=== PATIENT | male | born 1980 | race Caucasian/White ===

== ENCOUNTER 2023-09-17 22:18 | Emergency (ER) | payer BC, SELFPAY ==
[2023-09-17 22:26] VITALS: BP 128/94; PULSE 66; RESP 16; TEMP 36.6; O2SAT 92; BMI 30.7
--- NOTE | 2023-09-17 22:39 | CTR_ITS ---
PROCEDURE INFORMATION: Exam: CT Head Without Contrast Exam date and time: 09/17/2023 10:56 PM Age: 42 years old Clinical indication: Pain; Headache; Additional info: Severe headache TECHNIQUE: Imaging protocol: Computed tomography of the head without contrast. Radiation optimization: All CT scans at this facility use at least one of these dose optimization techniques: automated exposure control; mA and/or kV adjustment per patient size (includes targeted exams where dose is matched to clinical indication); or iterative reconstruction. COMPARISON: No relevant prior studies available. RADIATION DOSE METRICS: Total DLP (mGy-cm): 1208.58 FINDINGS: Brain: Normal. No hemorrhage. Unremarkable white matter. No mass effect. Cerebral ventricles: No ventriculomegaly. Paranasal sinuses: Visualized sinuses are unremarkable. No fluid levels. Mastoid air cells: Visualized mastoid air cells are well aerated. Bones: Unremarkable. No acute fracture. Soft tissues: Unremarkable. CT/CT head wo con* [id number] IMPRESSION: No acute intracranial abnormality.
--- NOTE | 2023-09-17 22:45 | ED_ITS ---
HPI - Headache 2 General: Chief Complaint: Headache Stated Complaint: Exploding Headache Time Seen by Provider: 09/17/23 22:39 History of Present Illness: 42-year-old male patient comes in today with complaints of severe headache that seem like it exploded inside his head. Patient reports it happened and actually took him to his knees. Patient reports since then his headache has pretty much resolved and is only 2 out of 10 at this time. Patient denies any chronic medical problems. Patient does take routine supplements and pre and probiotics. Review of Systems 2 General: Reports: 10 or more systems reviewed and unremarkable except in HPI and below Neuro: Reports: headache(s) Physical Exam 2 Const: COMMON NORMALS: alert HENMT: COMMON NORMALS: normocephalic HEAD & SCALP: normocephalic Neck/C-Spine: COMMON NORMALS: full ROM Resp: COMMON NORMALS: normal respiratory effort and clear to auscultation bilaterally AUSCULTATION: clear to auscultation bilaterally Cardio: COMMON NORMALS: regular rate and regular rhythm RATE: regular rate RHYTHM: regular rhythm GI: COMMON NORMALS: Soft to palpation PALPATION: Yes Soft to palpation Back/Pelvis: COMMON NORMALS: thoracic and lumbar spine normal to inspection Extremity: COMMON NORMALS: normal to inspection and full ROM Neuro: SENSORIUM/ORIENTATION: Yes alert Skin: COMMON NORMALS: turgor normal GENERAL SKIN EXAM: turgor normal Course 2 Vital Signs: Vital signs: Vital Signs Temperature 97.8 F 09/17/23 22:26 Pulse Rate 66 09/17/23 22:26 Respiratory Rate 16 09/17/23 22:26 Blood Pressure 128/94 09/17/23 22:26 Pulse Oximetry 92 09/17/23 22:26 Oxygen Delivery Me thod Room Air 09/17/23 22:26 MDM - Headache Medical Decision Making 42-year-old male patient comes in today with complaints of thunderclap headache. Patient reports the pain has resolved and has actually improved pretty much gone away since arriving to the ER. Incident occurred this evening. Patient appears normal. Patient moves all extremities well. No focal neural deficits. Vital signs are normal. Differential diagnosis includes not limited to subarachnoid hemorrhage, cluster headache, migraine headache, tension headache. CT scan noted no acute abnormalities of the brain. CBC CMP was unremarkable. Reviewed exam with patient recommended treatment with management with [id number] medications. Recommended following up with primary care for further instructions. Also suggested follow-up with neurology for recurrent and persistent headaches. Lab Data 09/17/23 22:47 09/17/23 22:[address] 09/17/23 22:39 IMPRESSION: No acute intracranial abnormality. Laboratory Results WBC 6.45 10^3/uL (3.29-11.43) 09/17/23 22:47 RBC 5.09 10^6/uL (3.85-5.65) 09/17/23 22:47 Hgb 14.80 g/dL (11.27-16.99) 09/17/23 22:47 Hct 43.1 % (37-53) 09/17/23 22:47 MCV 84.7 fl (82-101) 09/17/23 22:47 MCH 29.1 pg (27-33) 09/17/23 22:47 MCHC 34.3 g/dL (30-55) 09/17/23 22:47 RDW 12.3 % (12.1-15.1) 09/17/23 22:47 Plt Count 263 10^3/cmm (157-399) 09/17/23 22:47 MPV 10.0 fL (7.4-10.4) 09/17/23 22:47 Neut % (Auto) 41.2 % 09/17/23 22:47 Lymph % (Auto) 43.7 % 09/17/23 22:47 [place] % (Auto) 11.0 % 09/17/23 22:47 Eos % (Auto) 3.3 % 09/17/23 22:47 Baso % (Auto) 0.5 % 09/17/23 22:47 Neut # (Auto) 2.66 10^3/uL (1.8-7.7) 09/17/23 22:47 Lymph # (Auto) 2.8 10^3/uL (0.8-4.8) 09/17/23 22:47 [place] # (Auto) 0.7 10^3/uL (0.2-0.9) 09/17/23 22:47 Eos # (Auto) 0.2 10^3/uL (0.0-0.8) 09/17/23 22:47 Baso # (Auto) 0.0 10^3/uL (0.0-0.1) 09/17/23 22:47 Nucleated RBC % (auto) 0 % 09/17/23 22:47 Nucleated RBCs # 0.0 /100WBC 09/17/23 22:47 Sodium 141 mmol/L (136-145) 09/17/23 22:47 Potassium 4.1 mmol/L (3.5-5.1) 09/17/23 22:47 Chloride 105 mmol/L (98-107) 09/17/23 22:47 Carbon Dioxide 24 mmol/L (22-29) 09/17/23 22:47 Anion Gap 16.1 (5-19) 09/17/23 22:47 BUN 16 mg/dL (6-20) 09/17/23 22:47 Creatinine 1.0 mg/dL (0.7-1.2) 09/17/23 22:47 GFR Calculation 82.8 mL/min (90-130) L 09/17/23 22:47 Glucose 125 mg/dL (65-115) H 09/17/23 22:47 Calculated Osmolality 295 mOsm/kg (285-295) 09/17/23 22:47 Calcium 9.3 mg/dL (8.5-10.5) 09/17/23 22:47 Total Bilirubin 0.3 mg/dL (0.15-1.2) 09/17/23 22:47 AST 19 U/L (0-40) 09/17/23 22:47 ALT 29 U/L (0-41) 09/17/23 22:47 Alkaline Phosphatase 84 U/L (40-130) 09/17/23 22:47 Total Protein 7.8 g/dL (6.6-8.7) 09/17/23 22:47 Albumin 4.5 g/dL (3.5-5.2) 09/17/23 22:47 Globulin 3.3 g/dL (1.3-4.6) 09/17/23 22:47 All radiology interpretation(s) finalized by discharge Discharge Plan Discharge Patient Disposition: Home Clinical Impression: Headache Qualifiers: Headache type: unspecified Headache chronicity pattern: acute headache I ntractability: intractable Qualified Code(s): R51.9 - Headache, unspecified Condition: Stable Discharge Orders: Discharge ED (Routine); Ordered 09/17/23 Ordered By: Chaka Guajardo Referrals: Shayy Moreno APN [Primary Care Provider] - Discharge Diet: Usual diet Discharge Activity: Increase activity as tolerated Patient Instructions: Acute Headache (ED) Activity Restrictions/Additional Instructions: Follow-up with primary care for further instructions. Return to ED for new concerns. Thank you for choosing [facility] for your healthcare needs today. Please realize that you were seen in the emergency department and that we are providing you with an emergency medical screening exam and this may not be a complete and all exclusive of all testing and/or medical workup we may need to determine your element or severity of your illness. It is very important that you follow-up as instructed with your primary care provider or specialist for the additional evaluation and to discuss your medical treatment plan. You may return to the emergency department should you have concerns or if your condition changes or worsens in any way. Coding Level of Care Code ED Linotype Operator for Franco Morales
[2023-09-17 22:53] LABS: Basophils % 0.5 %; Eosinophils # 0.2 10^3/uL (0.0-0.8); Eosinophils % 3.3 %; Hematocrit 43.1 % (37-53); Lymphocytes # 2.8 10^3/uL (0.8-4.8); Lymphocytes % 43.7 %; Mean Corpuscular HGB Conc 34.3 g/dL (30-55); Mean Corpuscular Hemoglobin 29.1 pg (27-33); Mean Corpuscular Volume 84.7 fl (82-101); Monocytes # 0.7 10^3/uL (0.2-0.9); Neutrophils # 2.66 10^3/uL (1.8-7.7); Neutrophils % 41.2 %; Nucleated Red Blood Cells % 0 %; Platelet Count 263 10^3/cmm (157-399); Red Blood Count 5.09 10^6/uL (3.85-5.65); Red Cell Distribution Width 12.3 % (12.1-15.1); White Blood Count 6.45 10^3/uL (3.29-11.43)
[2023-09-17 23:10] LABS: Alanine Aminotransferase 29 U/L (0-41); Albumin Level 4.5 g/dL (3.5-5.2); Alkaline Phosphatase 84 U/L (40-130); Anion Gap 16.1 (5-19); Aspartate Amino Transferase 19 U/L (0-40); Blood Urea Nitrogen 16 mg/dL (6-20); Calcium 9.3 mg/dL (8.5-10.5); Carbon Dioxide 24 mmol/L (22-29); Chloride 105 mmol/L (98-107); Creatinine Clr Calc Pharmacy 118.1889; Globulin 3.3 g/dL (1.3-4.6); Glomerular Filtration Rate 82.8 mL/min (90-130); Glucose 125 mg/dL (65-115); Osmolality Calculated 295 mOsm/kg (285-295); Potassium 4.1 mmol/L (3.5-5.1); Sodium 141 mmol/L (136-145); Total Bilirubin 0.3 mg/dL (0.15-1.2); Total Protein 7.8 g/dL (6.6-8.7)
== END 2023-09-17 23:35 | disposition home or self-care (01) ==
PROVIDERS: Emergency Provider Nurse Practitioner Family; PCP Nurse Practitioner Family
DX: R51.9 Headache, unspecified (principal)
CPT/HCPCS: 70450; 80053; 85025; 99284